=== PATIENT | female | born 1950 | race Asian ===

== ENCOUNTER 2019-12-22 01:34 | Emergency (ER) | payer OTHER, MEDICARE ==
[~2019-12-22] VITALS: Ht 157.5 cm; Wt 59.0 kg
--- NOTE | 2019-12-22 01:38 | NUR ---
Placed in room 3 . Placed on biomechanical engineer, blood pressure machine and pulse oximeter. To gown for exam. Side rails up. Report given to PALMA ROSAS.
[2019-12-22 01:39] VITALS: BP_SYST 187
--- NOTE | 2019-12-22 01:40 | NUR ---
Patient BIB EMS from home. 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 Patient states ' nausea, vomitting and epigastric pain." Hx Colon Cancer. 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
[2019-12-22] MEDS ORDERED: ONDANSETRON HCL 4 MG/2 ML VIAL IVP ONE (01:45)
[2019-12-22] MEDS ORDERED: NACL 0.9% 1,000 ML IV ONE (01:45)
--- NOTE | 2019-12-22 01:46 | NUR ---
SAVANNAH Delgado at bedside examining patient.
--- NOTE | 2019-12-22 01:50 | NUR ---
# 22 gauge angiocath placed to LAC. Use of asceptic technique. Opsite placed over site. Blood return noted. Blood for lab drawn from site. Flushed with 10 cc of normal saline. No evidence of infiltration noted. Patient tolerated well.
[2019-12-22] MEDS ORDERED: KETOROLAC TROMETHAMINE 30 MG VIAL IVP ONE (02:00)
--- NOTE | 2019-12-22 02:19 | NUR ---
Patient came back from Ct scan.
[2019-12-22 02:21] LABS: HEMATOCRIT 39.5 % (36-48)
[2019-12-22 02:25] LABS: BASOPHILS # (AUTO) 0.1 K/uL (0.0-0.2); BASOPHILS % (AUTO) 0.5 % (0.0-2.0); EOSINOPHILS # (AUTO) 0.1 K/uL (0.0-0.4); HEMOGLOBIN 13.2 g/dL (12.0-16.0); LYMPHOCYTES # (AUTO) 2.2 K/uL (1.0-5.5); LYMPHOCYTES % (AUTO) 21.5 % (20.5-51.5); MEAN CORPUSCULAR HEMOGLOBIN 32 pg (27-31); MEAN CORPUSCULAR HGB CONC 33 % (32-36); MEAN CORPUSCULAR VOLUME 97 fL (79.0-98.0); MONOCYTES # (AUTO) 0.5 K/uL (0.0-1.0); MONOCYTES % (AUTO) 4.9 % (1.7-9.3); NEUTROPHILS # (AUTO) 7.3 K/uL (1.8-7.7); NEUTROPHILS % (AUTO) 72.1 % (40.0-70.0); PLATELET COUNT (AUTO) 264 K/uL (130-430); RED BLOOD CELL COUNT(AUTO) 4.07 MIL/uL (4.2-6.2); RED CELL DISTRIBUTION WIDTH 13.7 % (9.0-15.0); WHITE BLOOD COUNT (AUTO) 10.1 K/uL (4.8-10.8)
[2019-12-22 02:32] LABS: ANION GAP 7 (5-15); CALCIUM 8.8 mg/dL (8.4-11.0); CHLORIDE 103 mmol/L (98-107); CREATININE 0.99 mg/dL (0.55-1.30); GLUCOSE 152 mg/dL (70-99); POTASSIUM 3.3 mmol/L (3.5-5.1); SODIUM SERUM 139 mmol/L (136-145); UREA NITROGEN, BLOOD 21 mg/dL (8-21)
[2019-12-22 02:35] LABS: GFR AFRICAN AMERICAN 72 mL/min (>90)
--- NOTE | 2019-12-22 02:39 | NUR ---
Patient resting quietly. No acute distress noted. Vital signs within normal range.
[2019-12-22 02:46] LABS: ALANINE AMINOTRANSFERASE 31 U/L (12-78); ALBUMIN 4.2 g/dL (3.4-4.8); ASPARTATE AMINOTRANSFERASE 21 U/L (10-37); LIPASE 107 U/L (73-393); TOTAL BILIRUBIN 0.3 mg/dL (0.0-1.0)
--- NOTE | 2019-12-22 03:29 | NUR ---
Patient transported to radiology via wheelchair, accompanied by [employer] Consultant.
[2019-12-22 03:38] LABS: BILIRUBIN,URINE NEGATIVE (NEGATIVE); BLOOD, URINE 2+ (NEGATIVE); CLARITY/URINE CLEAR (CLEAR); COLOR,URINE YELLOW (YELLOW); GLUCOSE,URINE NEGATIVE (NEGATIVE); KETONES,URINE NEGATIVE (NEGATIVE); LEUKOCYTE ESTERASE ,URINE NEGATIVE (NEGATIVE); NITRITE, URINE NEGATIVE (NEGATIVE); PH,URINE 7.5 (5.0-8.0); PROTEIN URINE 1+ (NEGATIVE); UROBILINOGEN,URINE 0.2 (0.2-1.0)
[2019-12-22 03:47] LABS: BACTERIA,URINE FEW /HPF (None Seen); WBC,URINE 0-3 /HPF (0-3)
[2019-12-22 04:11] VITALS: BP_SYST 136
--- NOTE | 2019-12-22 04:11 | NUR ---
Patient given written and verbal discharge instructions and verbalizes understanding. ER MD discussed with patient the results and treatment provided. Patient in stable condition. ID arm band removed. IV catheter removed intact and dressing applied, no active bleeding. Rx of Douglas and Zofran given. Patient educated on pain management and to follow up with PMD. Pain Scale 0/10. Opportunity for questions provided and answered. Medication side effect fact sheet provided.
== END 2019-12-22 04:11 | disposition home or self-care (01) ==
LOC: SED 01:34
DX: K80.20 Calculus of gallbladder without cholecystitis without obstruction (principal); R11.2 Nausea with vomiting, unspecified; I10 Essential (primary) hypertension; E78.00 Pure hypercholesterolemia, unspecified
CPT/HCPCS: 36415; 71045; 74176; 76700; 80053; 81000; 83690; 84484; 85025; 93005; 96361; 96374; 96375; 99285; J1885; J2405; J7030

== ENCOUNTER 2019-12-29 00:39 | Emergency (ER) | payer OTHER, MEDICARE ==
[~2019-12-29] VITALS: Ht 157.5 cm; Wt 59.0 kg
[2019-12-29 00:39] VITALS: BP_SYST 159
--- NOTE | 2019-12-29 00:39 | NUR ---
Pt donny from home to bed 2 for evaluation
[2019-12-29] MEDS ORDERED: NACL 0.9% 1,000 ML IV ONE (00:51)
--- NOTE | 2019-12-29 00:55 | NUR ---
ER Dr. GARCES at bedside examining patient.
--- NOTE | 2019-12-29 00:57 | NUR ---
PT BIB ALS C/O OF EPIGASTRIC PAIN RATED 5/10. PT REPORTS SHE TOOK HER BLOOD PRESSURE AT 11PM AND IT WAS 208/110 SO SHE CALLED 911. PT DENIES SOB, COUGH, NAUSEA/VOMITING, BLURRY VISION, HEADACHE, NUMBNESS, TINGLING. PT DOES NOT HAVE ANY OTHER MEDICAL COMPLAINTS AT THIS TIME. WILL CONTINUE TO MONITOR.
[2019-12-29] MEDS ORDERED: PANTOPRAZOLE SODIUM 40 MG/VIAL (PROTONIX) IVP ONE (01:00)
[2019-12-29] MEDS ORDERED: MORPHINE 2 MG/ML INJ. SYRINGE IVP ONE (01:00)
--- NOTE | 2019-12-29 01:00 | NUR ---
# 20 gauge angiocath placed to LAC PLACED BY FIRE. Use of asceptic technique. Opsite placed over site. Blood return noted. Flushed with 10 cc of normal saline. No evidence of infiltration noted. Patient tolerated well.
--- NOTE | 2019-12-29 01:08 | NUR ---
PATIENT AMBULATED TO RESTROOM WITH STEADY GAIT.
[2019-12-29 01:31] LABS: BILIRUBIN,URINE NEGATIVE (NEGATIVE); BLOOD, URINE 1+ (NEGATIVE); CLARITY/URINE CLEAR (CLEAR); COLOR,URINE YELLOW (YELLOW); GLUCOSE,URINE NEGATIVE (NEGATIVE); KETONES,URINE NEGATIVE (NEGATIVE); LEUKOCYTE ESTERASE ,URINE NEGATIVE (NEGATIVE); NITRITE, URINE NEGATIVE (NEGATIVE); PH,URINE 6.5 (5.0-8.0); PROTEIN URINE NEGATIVE (NEGATIVE); UROBILINOGEN,URINE 0.2 (0.2-1.0)
[2019-12-29 01:41] LABS: BASOPHILS # (AUTO) 0.1 K/uL (0.0-0.2); BASOPHILS % (AUTO) 0.7 % (0.0-2.0); EOSINOPHILS # (AUTO) 0.3 K/uL (0.0-0.4); EOSINOPHILS % (AUTO) 3.5 % (0.0-4.0); HEMOGLOBIN 12.8 g/dL (12.0-16.0); LYMPHOCYTES # (AUTO) 1.5 K/uL (1.0-5.5); LYMPHOCYTES % (AUTO) 17.1 % (20.5-51.5); MEAN CORPUSCULAR HEMOGLOBIN 33 pg (27-31); MEAN CORPUSCULAR HGB CONC 34 % (32-36); MEAN CORPUSCULAR VOLUME 97 fL (79.0-98.0); MONOCYTES # (AUTO) 0.5 K/uL (0.0-1.0); MONOCYTES % (AUTO) 5.7 % (1.7-9.3); NEUTROPHILS # (AUTO) 6.4 K/uL (1.8-7.7); PLATELET COUNT (AUTO) 249 K/uL (130-430); RED BLOOD CELL COUNT(AUTO) 3.91 MIL/uL (4.2-6.2); RED CELL DISTRIBUTION WIDTH 13.2 % (9.0-15.0); WHITE BLOOD COUNT (AUTO) 8.8 K/uL (4.8-10.8)
[2019-12-29 01:52] LABS: CALCIUM 9.4 mg/dL (8.4-11.0); CREATININE 1.04 mg/dL (0.55-1.30); POTASSIUM 4.1 mmol/L (3.5-5.1)
[2019-12-29 01:57] LABS: ALBUMIN 4.3 g/dL (3.4-4.8); TOTAL BILIRUBIN 0.4 mg/dL (0.0-1.0)
[2019-12-29 02:13] LABS: BACTERIA,URINE FEW /HPF (None Seen); WBC,URINE 0-3 /HPF (0-3)
--- NOTE | 2019-12-29 02:40 | NUR ---
PT AMBULATED TO RESTROOM WITH STEADY GAIT. PT REPORTS HER PAIN HAS SUBSIDED AND IS A 0 OUT OF 10.
--- NOTE | 2019-12-29 03:18 | NUR ---
PT DENIES PAIN. PT SHOWS NO SIGNS OF ACUTE DISTRESS.
[2019-12-29 03:54] VITALS: BP_SYST 138
== END 2019-12-29 03:54 | disposition home or self-care (01) ==
LOC: SED 00:39
DX: K80.20 Calculus of gallbladder without cholecystitis without obstruction (principal); I10 Essential (primary) hypertension
CPT/HCPCS: 36415; 80053; 81000; 83690; 83880; 84484; 85025; 93005; 96374; 99285; C9113; J2270; J7030; 99284